=== PATIENT | female | born 1950 | race Caucasian/White ===

== ENCOUNTER → 2016-07-20 | Outpatient (CLI) | payer OTHER ==
[~2016-07-20] MED LIST: ATEN-175 PO; CTP2 PO; FURO20TA PO; MCRK20 PO; OMEP20CA9 PO; TELM80TA PO
--- NOTE | 2016-07-20 13:16 | MAMMOGRAPHY REPORT ---
BILATERAL DIGITAL SCREENING MAMMOGRAM WITH CAD: 07/20/2016 CLINICAL HISTORY: Routine screening examination. TECHNIQUE: Bilateral CC, MLO, XCCL and repeat MLO views were obtained. Current study was also evalua freda with a Computer Aided Detection (CAD) system. COMPARISON: Comparison is made to exams dated: 07/17/2015 mammogram, 06/19/2014 mammogram, 06/16/2013 mamm ogram, 06/15/2012 mammogram, 02/06/2011 mammogram, and 11/10/2005 mammogram - [facility] er. BREAST COMPOSITION: The tissue of both breasts is almost entirely fatty. FINDINGS: There are a few scattered punctate benign-appearing microcalcifications. A stable focal a symmetry in the left upper outer posterior breast. No suspicious mass, architectural distortion or c luster of suspicious microcalcifications is seen. IMPRESSION: ACR BI-RADS CATEGORY 1: NEGATIVE There is no mammographic evidence of malignancy. A 1 year screening mammogram is recommended. The pa tient will receive written notification of the results. Approximately 10% of breast cancers are not detected with mammography. A negative mammographic report should not delay biopsy if a clinically suggestive mass is present. Rosa Gallegos M.D. ay/:07/20/2016 09:20:33 Vacuum Cooker Operator: Nohemy BUCK(Lynn)(Ismael)([place]), [facility] letter sent: Normal 1/2 BI-RADS Code: ACR BI-RADS Category 1: Negative
== END | disposition home or self-care (01) ==
LOC: C.MAMM 08:04
PROVIDERS: ATTEND Family Medicine
DX: Z12.31 Encounter for screening mammogram for malignant neoplasm of breast (principal)